=== PATIENT | female | born 1990 | race Caucasian/White ===

== ENCOUNTER 2018-01-22 11:15 | Observation (INO) | payer OTHER ==
[2018-01-22 11:58] LABS: Bilirubin Negative (Negative); Blood, Urine Moderate (Negative); Clarity Clear (Clear); Glucose, Urine (Dipstick) Negative (Negative); Leukocyte Negative (Negative); Nitrite Negative (Negative); Protein, Urine (Dipstick) Negative (Neg-Trace); Specific Gravity, Urine 1.015 (1.005-1.030); Urobilinogen 0.2 mg/dL (0.2-1.0); pH, Urine 7.5 (5.0-9.0)
[2018-01-22 12:02] LABS: Pregnancy Test - Urine (BHCG) POSITIVE (Negative); Pregu Control Background? CLEAR/WHITE (CLR/WHITE); Pregu Control Bar Appear? YES (CONTROL BAR); Specific Gravity 1.015 (1.002-1.036)
[2018-01-22 12:04] LABS: Bacteria/HPF None Seen HPF (None Seen); RBC/HPF 0-3 HPF (0-3); Squamous Epithelial None Seen HPF (0-3); WBC/HPF None Seen HPF (0-3)
[2018-01-22 12:20] LABS: #Basophils 0.1 thou/uL (0.0-0.2); #Lymphocytes 1.9 thou/uL (1.20-3.40); #Monocytes 0.6 thou/uL (0.11-0.59); #Neutrophils 4.8 thou/uL (1.40-6.50); %Basophils 1.2 % (0.0-1.0); %Eosinophils 0.7 % (0.0-10.0); %Lymphocytes 25.6 % (21.0-51.0); %Monocytes 7.6 % (0.0-10.0); ALT (SGPT) 14 U/L (8-55); AST (SGOT) 12 U/L (5-34); Albumin 4.3 g/dL (3.5-5.0); Alkaline Phosphatase 64 U/L (40-150); Anion Gap 12 mmol/L (10-20); BUN (Urea Nitrogen) 8 mg/dL (7.0-18.7); Bilirubin, Total 0.5 mg/dL (0.2-1.2); Calc. Creatinine Clearance 0 mL/min (70-130); Calcium 9.2 mg/dL (7.8-10.44); Carbon Dioxide 24 mmol/L (22-29); Chloride 106 mmol/L (98-107); Estimated GFR-MDRD Greater than 90; Globulin 3.2 g/dL (2.4-3.5); Glucose 104 mg/dL (70-105); Mean Corpuscular HGB CONC 35.8 g/dL (32.0-36.0); Mean Corpuscular Hemoglobin 30.8 pg (27.0-31.0); Mean Corpuscular Volume 86.2 fl (81.0-99.0); Mean Platelet Volume 6.5 fL (7.4-10.4); Platelet Count 256 thou/uL (130-400); Potassium 3.9 mmol/L (3.5-5.1); Protein, Total 7.5 g/dL (6.0-8.3); RBC Distribution Width 11.3 % (11.5-14.5); Red Blood Cell (RBC) Count 4.54 mill/uL (4.20-5.40); Sodium 138 mmol/L (136-145); White Blood Cell (WBC) Count 7.3 thou/uL (4.8-10.8)
[2018-01-22 13:03] LABS: PTT 31.5 SEC (22.9-36.1); Prothrombin Time 12.9 SEC (12.0-14.7)
--- NOTE | 2018-01-22 13:56 | ULT ---
PELVIC ULTRASOUND: Date: 01/22/18 HISTORY: 5-6 week patient. Positive serum beta HCG. Patient having vaginal bleeding. COMPARISON: None. TECHNIQUE: Transabdominal and endovaginal imaging of the pelvis performed. Ovaries are interrogated with [place] sc omega, color flow, Doppler imaging, and spectral waveform analysis. FINDINGS: Uterus is identified, measuring 5.4 x 5.8 x 9.5 cm. There is a solid echotexture focus within the neal metrium measuring 2.1 x 2.0 x 2.4 cm, compatible with a uterine leiomyoma. Endometrium measures 1.0 c m in diameter. No evidence of gestational sac, yolk sac, or pole. Multiple anechoic foci in the cervix likely represent nabothian cysts. Small amount of free fluid in the cul-de-sac. Left ovary and right ovary have a normal echotexture, measuring 3.1 x 2.3 x 1.4 cm, and 2.3 x 1.7 x 1 .5 cm. In the left adnexa, there does appear to be a mixed echotexture mass. There appears to be a catherine e with a crown-rump length of 0.7 cm. This would correspond to a gestational age of 6 weeks/4 days. S onographer documents heart tones with a rate of 155 beats/minute. IMPRESSION: No sonographic evidence of an intrauterine gestation. However, in the left adnexa, there does appear to be a pole with a crown-rump length suggesting a gestational age of 6 weeks/4 days. There are heart tones with a rate of 155 beats/minute. Ectopic is favored. Results of study discussed with Dr. Walker on 01/22/18 at 1255 hours. CODE CR. POS: [facility]
[2018-01-22] MEDS ORDERED: Ondansetron HCl/PF 4 MG/2 ML Vial IVP PRN (14:50)
[2018-01-22 14:51] VITALS: BMI 35.7
[2018-01-22] MEDS ORDERED: Ondansetron ODT 4 MG TAB PO PRN (14:51)
[2018-01-22] MEDS ORDERED: Acetaminophen 325 MG TAB PO PRN (14:51)
[2018-01-22] MEDS ORDERED: HYDROcodone/Acetaminophen 7.5/325 mg Tablet PO PRN ×2 (15:07)
--- NOTE | 2018-01-22 15:36 | HP ---
DATE OF ADMISSION: 01/22/2018. ADMITTING PHYSICIAN: Noé Carbajal M.D. CHIEF COMPLAINT: Vaginal bleeding. HISTORY OF PRESENT ILLNESS: Ms. Crawley is a 27-year-old -0-0-1 with a reported last menstrual period of 12/15/2017, who presented to [facility] ER in [place] complaining of a 2-day history of vaginal bleeding. The patient states that she had had a positive test at home and had an OB visit scheduled with Dr. Arabella Palencia in [place] in the next 2 weeks. She denies nausea, vomiting, fever, chills or abdominal pain. Evaluation in the ER with ultrasound demonstrated an empty uterus and a pole in the left adnexa consistent with an ectopic . PAST OBSTETRICAL HISTORY: She reports an uncomplicated vaginal delivery of a 7- pound baby in 02/2008. PAST MEDICAL HISTORY: Unremarkable. CURRENT MEDICATIONS: None. PAST SURGICAL HISTORY: None. ALLERGIES: No known allergies. SOCIAL HISTORY: She denies tobacco, alcohol, or illicit drug use. FAMILY HISTORY: Significant for cervix cancer in her grandmother. REVIEW OF SYSTEMS: She denies nausea, vomiting, fever, chills or abdominal pain. PHYSICAL EXAMINATION: VITAL SIGNS: Blood pressure on admission here on the floor is 132/76, pulse 93 , respirations 17, temperature 98.0, O2 saturation on room air is 97%. CHEST: Clear to auscultation. CARDIOVASCULAR: Regular rate and rhythm. ABDOMEN: Soft and nontender. There is no guarding or rebound. PELVIC: Pelvic examination is deferred. LABORATORY DATA: On admission, CBC shows a white count of 7.3, hemoglobin and hematocrit 14.0 and 39.2 respectively, platelet count 256,000. PT 12.9, PTT 31.5. Chemistries are normal with sodium of 138, potassium of 3.9, BUN of 8, creatinine of 0.68. Beta hCG is 12,679. ASSESSMENT: Ectopic . The patient understands that her current clinical situation is not amenable to treatment with methotrexate. PLAN: Plan at this time is to proceed to surgery for attempted laparoscopic treatment of ectopic. She understands that should laparoscopy not be accomplished that she may require open laparotomy for best treatment. The risk of the procedure including anesthesia, bleeding, infection as well as damage to adjacent organs, requiring repair, removal or transfusion were discussed with her in detail and she wishes to proceed. Her consent is obtained and is on the chart. JUDY
[2018-01-22] MEDS ORDERED: Lidocaine 1% PF 5 ML VIAL ONE (16:13)
[2018-01-22] MEDS ORDERED: PROPOFOL 200 MG/20 ML VIAL ONE (16:13)
[2018-01-22] MEDS ORDERED: Dexamethasone 20 MG/5 ML VIAL ONE (16:13)
[2018-01-22] MEDS ORDERED: Succinylcholine Chloride 20 MG/ML 10 ml SYRINGE FS ONE (16:13)
[2018-01-22] MEDS ORDERED: HYDROmorphone 0.5 MG/0.5 ML SYRINGE ONE (18:33)
[2018-01-22] MEDS ORDERED: Fentanyl 100 MCG/2 ML VIAL ONE (18:33)
[2018-01-22] MEDS ORDERED: Midazolam HCl 2 mg/2 ml Vial ONE (18:46)
[2018-01-22] MEDS ORDERED: Bupivacaine HCl 0.5%/Epinephrine 1:200,000/PF 30 ml Vial ONE (18:56)
[2018-01-22] MEDS ORDERED: Promethazine HCl 25 MG/ML VIAL ONE (20:01)
[2018-01-22 22:35] VITALS: BP 102/59; TEMP 97.3
--- NOTE | 2018-01-22 22:45 | PDOC.EVN ---
Event Note - Event Note Event Note: Awake, alert. Op finding discussed in detail. Precautions given. RTC 2 weeks at [facility]. Rx. for Tylenol #3 #25, refill x1 given. Voices understanding of DC instructions.
--- NOTE | 2018-01-23 00:42 | OP ---
DATE OF PROCEDURE: 01/22/2018 PREOPERATIVE DIAGNOSIS: Suspected ectopic . POSTOPERATIVE DIAGNOSIS: Ectopic of the distal left fallopian tube. SURGEON: Noé Carbajal M.D. PROCEDURE: 1. Diagnostic laparoscopy. 2. Laparoscopic distal left salpingectomy. ANESTHESIA: General endotracheal. ESTIMATED BLOOD LOSS: Minimal. COMPLICATIONS: None. FINDINGS: 1. Normal uterus and right ovarian tube. 2. A 2-3 cm ectopic seen in the distal portion of the left fallopian tube. 3. Small amount of blood in the cul-de-sac. COMPLICATIONS: None. TECHNIQUE IN DETAIL: After good general endotracheal anesthesia was achieved, the patient was preppe d and draped in the usual sterile fashion in the dorsal lithotomy position using the Kalyan stirrups. A weighted speculum was inserted in the vagina and a Hulka tenaculum was placed across the cervix. Attention was turned to the abdomen, where a small infraumbilical incision was made. The Veress need le was placed into the peritoneal cavity and correct placement was ascertained using the saline test. Insufflation was then carried out using approximately 4 liters of carbon dioxide gas. Once the abd omen was insufflated, a 5-mm trocar was placed below the umbilicus. The scope was then introduced in to the pelvis and the contents of the pelvis were visualized. At this time, it could be seen that th e uterus was normal in size, shape and contour. The right ovary and tube were completely normal. On the left side, the left ovary was normal, but there was an unruptured ectopic seen in the distal portion of the fallopian tube. There was also a small amount of blood in the cul-de-sac. Decision was made to proceed laparoscopically. Two 5 mm ports were placed laterally under direct vis ion. A grasper was then used to grasp the distal portion of the left fallopian tube. The LigaSure d evice was then used to carefully divide the tube from the underlying tissue. The ectopic was easily excised in this manner. Under direct vision, an 11 mm port was then placed two fingerbreadths above the symphysis pubis in the midline. The Endobag was then used to collect the specimen and this was t hen removed. The larger trocar defect was repaired under direct vision with placement of 0 Vicryl. The photos were taken and then the pelvis was carefully irrigated. All areas were seen to be hemosta tic. All gas was allowed to escape from the peritoneal cavity. The smaller sleeves were then removed. e skin of all incisions was closed using subcuticular Monocryl and 1.5% bupivacaine with epinephrine was placed in these incision sites. Good hemostasis was noted across the abdomen. Attention was then turned to the vagina. The tenaculum was removed. There was a small amount of ble eding seen from the cervix, which could not be controlled with silver nitrate, so a single interrupte d stitch of 3-0 chromic was placed with good hemostasis. The Castaneda catheter was removed in the [facility] room. All instrument counts were correct. Sponge, lap, and needle counts were also correct. Th e patient tolerated this procedure well and was taken to the recovery room in good condition.
== END 2018-01-22 23:30 | disposition home or self-care (01) ==
LOC: SCSER 11:15 → EEVIPCON 13:20 → 3SE 13:20 → INTOOBSV 13:20
PROVIDERS: ADMIT Obstetrics & Gynecology; ATTEND Obstetrics & Gynecology
PROC: 10T24ZZ Resection of Products of Conception, Ectopic, Percutaneous Endoscopic Approach (ICD-10-PCS; principal; 2018-01-22)
PROC: 0UT64ZZ Resection of Left Fallopian Tube, Percutaneous Endoscopic Approach (ICD-10-PCS; 2018-01-22)
DX: O00.102 Left tubal pregnancy without intrauterine pregnancy (principal)
CPT/HCPCS: 76856; 80053; 81003; 81015; 81025; 84702; 85025; 85610; 85730; 86850; 86900; 86901; 88305; G0378; J0670; J1100; J1170; J2001; J2250; J2550; J2704; J3010; Q0162

== ENCOUNTER 2019-02-25 12:56 | Outpatient (CLI) | payer OTHER ==
--- NOTE | 2019-02-25 15:01 | ULT ---
TRANSABDOMINAL AND TRANSVAGINAL PELVIC ULTRASOUND WITH DOPPLER: 02/25/19 PROVIDED CLINICAL HISTORY: . FINDINGS: Comparison is made with the study dated 01/22/18. Uterus measures about 10.1 x 6.7 x 5.5 cm and demonstrates uterine fibroid involving the uterine body right of midline. There is a fluid collection within the endometrial canal without pole or gestational sac eviden t. This may reflect a gestational sac, and would correlate with a 5 week, 2 day gestation if it were such. The ovaries appear sonographically unremarkable. Color Doppler and spectral analysis of ovarian wavef orms demonstrate normal flow bilaterally. There is no evidence for free pelvic fluid. IMPRESSION: 1. Fluid collection within the endometrial canal, which may reflect gestational sac or pseudoges tational sac. A pole or yolk sac are not identified. Correlation with serial follow-up beta HC G values recommended. Follow-up ultrasound may be useful as indicated. 2. Uterine fibroid. POS: OFF
== END 2019-02-25 12:57 | disposition home or self-care (01) ==
LOC: SCSULT 12:56
PROVIDERS: ATTEND Family Medicine
DX: Z32.01 Encounter for pregnancy test, result positive (principal); D25.9 Leiomyoma of uterus, unspecified; Z87.59 Personal history of other complications of pregnancy, childbirth and the puerperium
CPT/HCPCS: 76856

== ENCOUNTER 2022-02-23 08:30 | Emergency (ER) | payer OTHER ==
[2022-02-23 09:14] LABS: #Basophils 0.1 thou/uL (0.0-0.2); #Eosinphils 0.1 thou/uL (0.0-0.7); #Lymphocytes 1.9 thou/uL (1.20-3.40); #Monocytes 0.5 thou/uL (0.11-0.59); #Neutrophils 5.3 thou/uL (1.40-6.50); %Basophils 1.3 % (0.0-1.0); %Eosinophils 0.8 % (0.0-10.0); %Lymphocytes 24.2 % (21.0-51.0); %Monocytes 6.5 % (0.0-10.0); %Neutrophils 67.2 % (42.0-75.0); Hemoglobin 14.3 g/dL (12.0-16.0); Mean Corpuscular Hemoglobin 30.7 pg (27.0-31.0); Mean Platelet Volume 6.6 fL (7.4-10.4); Platelet Count 260 thou/uL (130-400); RBC Distribution Width 11.8 % (11.5-14.5); Red Blood Cell (RBC) Count 4.67 mill/uL (4.20-5.40)
[2022-02-23 10:11] LABS: Bilirubin Negative (Negative); Blood, Urine 1+ (Negative); Clarity Clear (Clear); Glucose, Urine (Dipstick) Normal (Negative); Ketone, Urine Negative (Negative); Leukocyte Negative Leu/uL (Negative); Nitrite Negative (Negative); Protein, Urine (Dipstick) Negative (Neg-Trace); RBC/HPF 0-3 HPF (0-3); Specific Gravity, Urine 1.012 (1.002-1.036); Squamous Epithelial 0-3 HPF (0-3); Urobilinogen Normal mg/dL (Less than 2); WBC/HPF 0-3 HPF (0-3)
[2022-02-23 10:15] LABS: Bacteria/HPF 1+ HPF (None Seen)
== END 2022-02-23 12:04 | disposition home or self-care (01) ==
LOC: ERS 08:30
DX: O20.0 Threatened abortion (principal); O23.91 Unspecified genitourinary tract infection in pregnancy, first trimester; R82.71 Bacteriuria; O99.331 Smoking (tobacco) complicating pregnancy, first trimester; F17.210 Nicotine dependence, cigarettes, uncomplicated; Z79.899 Other long term (current) drug therapy; Z3A.01 Less than 8 weeks gestation of pregnancy
CPT/HCPCS: 36415; 76856; 81003; 81015; 84702; 85025; 86900; 86901; 93976